=== PATIENT | male | born 1950 | race Caucasian/White ===

== ENCOUNTER 2017-01-04 11:27 | Emergency (ER) | payer MEDICARE ==
[2017-01-04] MEDS ORDERED: BUPIVACAINE HCL 0.5 % INJ/PF 30 ML SDV INJ ONE (11:33)
--- NOTE | 2017-01-04 11:58 | ER Document Report ---
ED General - General Chief Complaint: Finger Injury Stated Complaint: FINGER INJURY Time Seen by Provider: 01/04/17 11:33 Mode of Arrival: Ambulatory Information source: Patient Notes: 66-year-old male presents with complaints of injury to left hand fifth digit just prior to arrival. Patient notes it was crushed by a metal object and has amputation of the distal aspect. Patient denies any other injuries - HPI Onset: Just prior to arrival Onset/Duration: Sudden Quality of pain: Achy Severity: Mild Pain Level: 1 Associated symptoms: Other Exacerbated by: Denies Relieved by: Denies Similar symptoms previously: No Recently seen / treated by doctor: No Past Medical History - Social History Smoking Status: Never Smoker Cigarette use (# per day): No Chew tobacco use (# tins/day): No Smoking Education Provided: No Family History: Reviewed & Not Pertinent Review of Systems - Review of Systems Notes: PHYSICAL EXAMINATION: GENERAL: Well-appearing, well-nourished and in no acute distress. HEAD: Atraumatic, normocephalic. EYES: Pupils equal round and reactive to light, extraocular movements intact, sclera anicteric, conjunctiva are normal. ENT: Nares patent, oropharynx clear without exudates. Moist mucous membranes. NECK: Normal range of motion, supple without lymphadenopathy LUNGS: Breath sounds clear to auscultation bilaterally and equal. No wheezes rales or rhonchi. HEART: Regular rate and rhythm without murmurs ABDOMEN: Soft, nontender, nondistended abdomen. No guarding, no rebound. No masses appreciated. Musculoskeletal: Normal range of motion, no pitting or edema. No cyanosis. NEUROLOGICAL: Cranial nerves grossly intact. Normal speech, normal gait. Normal sensory, motor exams PSYCH: Normal mood, normal affect. SKIN: Left hand fifth digit distal phalanx mid shaft amputation with loss of nail bed, sensation is intact patient is able to flex and extend the digit bleeding is controlled Course - Re-evaluation Re-evalutation: 01/04/17 11:58 Area was anesthetized, x-rays pending at this time bleeding is controlled Tetanus was updated last year 01/04/17 12:27 I cauterized a small capillary bleed, otherwise finger has been cleansed with Betadine Xeroform dressing has been placed patient will be given orthopedic follow-up and antibiotics After performing a Medical Screening Examination, I estimate there is LOW risk for OPEN FRACTURE, COMPARTMENT SYNDROME, TENDON RUPTURE, ACUTE NEUROVASCULAR INJURY, or RETAINED FOREIGN BODY, thus I consider the discharge disposition reasonable. Also, there is no evidence or peritonitis, sepsis, or toxicity. I have reevaluated this patient multiple times and no significant life threatening changes are noted. The patient and I have discussed the diagnosis and risks, and we agree with discharging home with close follow-up with the understanding that symptoms and presentations can change. We also discussed returning to the Emergency Department immediately if new or worsening symptoms occur. We have discussed the symptoms which are most concerning (e.g., changing or worsening pain, fever, numbness, weakness, cool or painful digits) that necessitate immediate return. Procedures - Additional Procedures digital nerve block Time performed: 11:45 - using 10 mL of 0.5% Sensorcaine with complete relief of the digit no complication Discharge - Discharge Clinical Impression: Amputation of finger tip Qualifiers: Encounter type: initial encounter Qualified Code(s): S68.129A - Partial traumatic metacarpophalangeal amputation of unspecified finger, initial encounter Finger injury Qualifiers: Encounter type: initial encounter Laterality: left Qualified Code(s): S69.92XA - Unspecified injury of left wrist, hand and finger(s), initial encounter Condition: Stable Disposition: HOME, SELF-CARE Instructions: Fractured Finger ([facility]) Prescriptions: Cephalexin Monohydrate [Keflex 500 mg Capsule] 500 mg PO QID #40 capsule Oxycodone HCl/Acetaminophen [Percocet 5-325 mg Tablet] 1 tab PO ASDIR PRN #20 tab PRN Reason: Referrals: SUSANNE DANIEL DO [ACTIVE STAFF] - Follow up tomorrow
[2017-01-04 13:36] VITALS: BP 140/59
== END 2017-01-04 13:34 | disposition home or self-care (01) ==
LOC: ER 11:27
PROC: 3E0T3BZ Introduction of Anesthetic Agent into Peripheral Nerves and Plexi, Percutaneous Approach (ICD-10-PCS; principal; 2017-01-04)
DX: S68.127A Partial traumatic metacarpophalangeal amputation of left little finger, initial encounter (principal); W23.0XXA Caught, crushed, jammed, or pinched between moving objects, initial encounter
CPT/HCPCS: 99283

== ENCOUNTER 2017-01-07 05:15 | Day surgery (SDC) | payer MEDICARE ==
[~2017-01-07 05:15] MED LIST: CEFAZOLIN 2 GM/D5W RTU 2 GM/50 ML RTUPB IV PRN
[2017-01-07] MEDS ORDERED: ALBUTEROL SULFATE 0.083% NEB 2.5 MG/3 ML AMPUL NEB ONE ×2 (05:30→05:45)
[2017-01-07 05:39] LABS: APPEARANCE,URINE CLEAR; BILIRUBIN,URINE NEGATIVE (NEGATIVE); GLUCOSE, URINE NEGATIVE (NEGATIVE); KETONES,URINE NEGATIVE (NEGATIVE); LEUKOCYTE ESTERASE,URINE NEGATIVE (NEGATIVE); NITRITE,URINE NEGATIVE (NEGATIVE); PROTEIN,URINE NEGATIVE (NEGATIVE); URINE SPECIFIC GRAVITY 1.016; UROBILINOGEN,URINE NEGATIVE mg/dL (<2.0)
[2017-01-07] MEDS ORDERED: BUPIVACAINE HCL 0.5 % INJ/PF 30 ML SDV ONE (06:01)
[2017-01-07 06:16] LABS: HEMATOCRIT 42.8 % (37.9-51.0); HEMOGLOBIN 14.8 g/dL (13.5-17.0); HGB HCT DIFFERENCE 1.6; MEAN CORPUSCULAR HGB CONC 34.7 g/dL (32.0-36.0); MEAN CORPUSCULAR VOLUME 89 fl (80-97); RED BLOOD COUNT 4.78 10^6/uL (4.35-5.55); RED CELL DISTRIBUTION WIDTH 13.2 % (11.5-14.0)
[2017-01-07 06:30] LABS: ANION GAP 7 (5-19); BLOOD UREA NITROGEN 27 mg/dL (7-20); CALCIUM 9.4 mg/dL (8.4-10.2); CARBON DIOXIDE 27 mmol/L (22-30); CHLORIDE 105 mmol/L (98-107); CREATININE RESULT 0.93 mg/dL (0.52-1.25); GLUCOSE 115 mg/dL (75-110); POTASSIUM 4.8 mmol/L (3.6-5.0); SODIUM 139.2 mmol/L (137-145)
[2017-01-07] MEDS ORDERED: PROPOFOL INJ 200 MG/20 ML VIAL IV ONE (07:13)
[2017-01-07] MEDS ORDERED: KETAMINE HCL INJ 500 MG/10 ML VIAL ONE (07:13)
[2017-01-07] MEDS ORDERED: MIDAZOLAM 2 MG/2 ML INJ ONE ×2 (07:13)
[2017-01-07] MEDS ORDERED: FENTANYL CITRATE INJ/PF 100 MCG/2 ML AMPUL ONE (07:14)
[2017-01-07] MEDS ORDERED: BUPIVACAINE HCL 0.25 % INJ/PF (2.5 MG/1 ML) 30 ML VIAL ONE (07:18)
[2017-01-07] MEDS ORDERED: LIDOCAINE 1% INJ-PF (10 MG/ML) 30 ML SDV ONE (07:18)
[2017-01-07] MEDS ORDERED: PROMETHAZINE HCL INJ 25 MG/1 ML VIAL IV PRN ×2 (07:37)
[2017-01-07] MEDS ORDERED: FENTANYL CITRATE INJ/PF 100 MCG/2 ML AMPUL IV PRN ×3 (07:37)
[2017-01-07] MEDS ORDERED: MORPHINE SULFATE 10 MG/ML INJ IV PRN (07:37)
[2017-01-07] MEDS ORDERED: DIPHENHYDRAMINE HCL 50 MG/ML VIAL IV PRN (07:37)
[2017-01-07] MEDS ORDERED: OXYCODONE-ACETAMINOPHEN 5-325 MG TABLET PO PRN ×3 (07:37→08:09)
--- NOTE | 2017-01-07 08:04 | PDOC DISCHARGE SUMMARY ---
Discharge Summary (SDC) - Discharge Final Diagnosis: Left Small Finger Amputation Date of Surgery: 01/07/17 Discharge Date: 01/07/17 Treatment or Instructions: Schedule Follow Up w/ Dr. Edvin Pina @ [facility] for Surgery to be seen in 10-14 days or as scheduled [place]: [place]: [place]: May remove dressing on postop day #1, keep incision covered and dry. Elevate May begin finger range of motion attempting to make full fist. Stool softener of choice when on pain medication. Prescriptions: Oxycodone HCl/Acetaminophen [Percocet 5-325 mg Tablet] 1 tab PO ASDIR PRN #20 tab PRN Reason: Referrals: ALPESH VASQUEZ DO [Primary Care Provider] - Discharge Diet: As Tolerated Respiratory Treatments at Home: Deep Breathing/Coughing Discharge Activity: Balance Activity w/Rest Report the Following to Your Physician Immediately: Increase in Pain, Fever over 101 Degrees, Unusual Bleeding, Redness, Swelling, Warmth, Increased Soreness
[2017-01-07] MEDS ORDERED: ONDANSETRON HCL INJ/PF 4 MG/2 ML SDV IV PRN (08:09)
--- NOTE | 2017-01-07 08:09 | Operative Report ---
Operative Report DATE OF SURGERY: 01/07/17 PREOPERATIVE DIAGNOSIS: Left small finger amputation POSTOPERATIVE DIAGNOSIS: Same OPERATION: V-Y advancement flap left small finger with revision amputation SURGEON: SUSANNE DANIEL ANESTHESIA: LMAC COMPLICATIONS: None ESTIMATED BLOOD LOSS: Minimal PROCEDURE: Indication for above procedure: 66-year-old male who sustained amputation to his left small finger. Patient was seen at the emergency room where the area was cleansed the patient received antibiotic's. He suffered followed up at my office which point we discussed treatment options including operative versus nonoperative intervention. Risks and benefits were explained to the patient, patient verbalized understanding and consented for the procedure. Procedure In Detail: Patient was seen and evaluated in the preoperative holding area. The LEFT upper extremity was initialized and marked. Patient received 2g of Ancef IV for bacterial prophylaxis. Patient was taken back to the operative room where transferred to the operative table and placed under anesthesia. Once they were adequately anesthetized a surgical team debriefing was performed ensuring all instrumentation was available, the surgical procedure was discussed with possible concerns reviewed. A digital block was performed utilizing a 50:50 mixture of 5 mL of lidocaine and 0.25% Marcaine to the small finger. The upper extremity was prepped with Betadine and draped in a sterile fashion. A timeout was done identifying correct patient, procedure and extremity everyone in attendance agree with this and verbalized no concerns. A digital tourniquet was placed around the small finger. Tip of the distal fascial small finger was carefully debrided with a small portion of bone removed. The sterile matrix remained in continuity. To allow coverage of the distal a V-Y advancement was utilized. The apex was brought down to the distal phalanx and blunt dissection was performed through the septi along the pulp to allow excursion of the flap. O the wound was irrigated with normal saline. Once adequate excursion was possible I then fixated the distal edge to the adjacent nail fold with interrupted 4-0 chromic gut suture the distal aspect was then fixated to allow coverage of the distal phalanx. The proximal longitudinal limb was closed with interrupted suture and the remaining portion of the V-Y flap was closed. Once complete there was coverage of the distal phalanx without remaining bone exposed. I then placed a Xeroform underneath the nail fold to keep it patent allow nail regrowth. Tourniquet was removed there was good peripheral perfusion of the distal phalanx. Wound was dressed with Xeroform 4 x 4's soft roll and a loosely applied Coban. Sponge counts, instrument counts, needle counts counts were correct. Patient was then awoken from anesthesia. Transferred from the operating room table to the operating room stretcher. There was no intraoperative complications patient tolerated procedure well stable to PACU. Postoperative plan: Patient will follow-up in the office in 10 days for wound check. Patient's sutures are absorbable and thus did not require removal. He will begin active range of motion immediately.
[2017-01-07 09:54] VITALS: BP 131/69
--- NOTE | 2017-01-07 13:43 | EKG REPORT ---
SEVERITY:- BORDERLINE ECG - SINUS RHYTHM BORDERLINE R WAVE PROGRESSION, ANTERIOR LEADS : Confirmed by: Maryann Richards 07-Jan-2017 13:42:17
[2017-01-07] MEDS ORDERED: LIDOCAINE 2% INJ-PF (20 MG/ML) 10 ML AMPUL ONE (13:54)
== END 2017-01-07 10:00 | disposition home or self-care (01) ==
LOC: OROUT 05:15
PROVIDERS: ATTEND Orthopaedic Surgery
PROC: 0X6W0Z3 Detachment at Left Little Finger, Low, Open Approach (ICD-10-PCS; principal; 2017-01-07 07:15)
DX: S68.627A Partial traumatic transphalangeal amputation of left little finger, initial encounter (principal); X58.XXXA Exposure to other specified factors, initial encounter; I10 Essential (primary) hypertension; F17.210 Nicotine dependence, cigarettes, uncomplicated; Z79.899 Other long term (current) drug therapy
CPT/HCPCS: 36415; 85027; 80048; 81001; 71010; 93005; 93010; 94640; 26952; J2250; J3010; J3490 ×3; J2704; A9270; J0690; 1830

== ENCOUNTER → 2017-05-10 | Outpatient (CLI) | payer MEDICARE ==
--- NOTE | 2017-05-10 10:08 | RADIOLOGY REPORT (SQ) ---
EXAM DESCRIPTION: SHOULDER RIGHT 2 OR MORE VIEWS COMPLETED DATE/TIME: 05/10/2017 7:56 am REASON FOR STUDY: PAIN IN RIGHT SHOULDER M25.511 PAIN IN RIGHT SHOULDER COMPARISON: AP chest 01/07/2017 NUMBER OF VIEWS: Three views. TECHNIQUE: Internal rotation, external rotation, and Y view images acquired of the right shoulder. LIMITATIONS: None. FINDINGS: MINERALIZATION: Normal. BONES: No acute fracture or dislocation. No worrisome bone lesions. JOINTS: There is a joint effusion present, or fluid in the subacromial/subdeltoid bursa with widening of the interval between the right humeral head and undersurface of the acromion. No glenohumeral di slocation. No widening at the AC joint. VISUALIZED LUNGS AND RIBS: No pneumothorax. No rib fracture. SOFT TISSUES: No radiopaque foreign body. OTHER: No other significant finding. IMPRESSION: Joint effusion or fluid in the subacromial/subdeltoid bursa. TECHNICAL DOCUMENTATION: JOB ID: [id number] [employer]- All Rights Reserved
== END ==
LOC: OD 07:48
PROVIDERS: ATTEND Family Medicine
DX: M25.511 Pain in right shoulder (principal)